=== PATIENT | male | born 1960 | race Caucasian/White ===

== ENCOUNTER 2018-10-13 14:50 | Day surgery (SDC) | payer OTHER ==
[2018-10-13] MEDS ORDERED: Xylocaine 1% Vial 30 ML PF IJ ONE (14:51)
[2018-10-13] MEDS ORDERED: Depo-Medrol 40 MG/ML IM ONE (14:51)
[2018-10-13] MEDS ORDERED: Marcaine 0.5% SDV 10 ML IJ ONE (14:51)
--- NOTE | 2018-10-13 16:44 | XRAY ---
Indication: Left hip injection. Intraoperative fluoroscopy was provided for 12 seconds. Single digital spot image submitted for interpretation demonstrates needle tip projecting just lateral to the left femur neck. Small amount of contrast injected for needle tip placement. Correlate with intraoperative findings/report.
--- NOTE | 2018-10-13 16:47 | XRAY ---
12 seconds of fluoroscopy was used in surgery for left intra-articular hip injection.
== END 2018-10-13 15:50 | disposition home or self-care (01) ==
LOC: SDC-PAIN 14:50
PROVIDERS: ATTEND Psychiatry & Neurology Pain Medicine
DX: M16.12 Unilateral primary osteoarthritis, left hip (principal); M25.552 Pain in left hip; I10 Essential (primary) hypertension; E78.00 Pure hypercholesterolemia, unspecified; K50.90 Crohn's disease, unspecified, without complications
CPT/HCPCS: 20610; 73501; 77002; J1030; J2001; Q9966

== ENCOUNTER 2019-03-03 10:31 | Emergency (ER) | payer OTHER ==
--- NOTE | 2019-03-03 10:43 | ERPHSYRPT ---
- History of Present Illness Time Seen by Provider: 03/03/19 10:43 Historian: patient Exam Limitations: no limitations Physician History: Pt says,. he has Chron's disease. C/O Constipation and lower abd pain for 2 days. Right Per anal pain. Timing/Duration: day(s) (2) Activities at Onset: none Quality: fullness Abdominal Pain Onset Location: suprapubic Pain Radiation: no radiation Severity of Pain-Max: moderate Severity of Pain-Current: moderate Modifying Factors: Improves With: other (Hurts when he tried to pass stool) Associated Symptoms: No back, No chest pain, No fatigue, No headache, No heartburn, No nausea, No neck pain, No rash, No shortness of breath, No syncope , No testicular pain Previous symptoms: same symptoms as today Allergies/Adverse Reactions: codeine Allergy (Verified 03/09/13 17:12) vancomycin Allergy (Verified 03/09/13 17:12) Home Medications: Metoprolol Succinate 100 mg [Toprol Xl 100 MG] 50 mg PO DAILY 03/09/13 [ History] Amitriptyline HCl 25 mg [Elavil 25 mg] 25 mg PO HS 09/22/17 [History] Fluticasone Propionate [Flonase Nasal] 16 gm NS DAILY PRN PRN 09/22/17 [History] Lisinopril 10 mg [Zestril 10 MG] 10 mg PO DAILY 09/22/17 [History] PARoxetine HCl [Paroxetine HCl] 20 mg PO DAILY 09/22/17 [History] Hx Tetanus, Diphtheria Vaccination/Date Given: Yes (UP TO DATE) Hx Influenza Vaccination/Date Given: No Hx Pneumococcal Vaccination/Date Given: No - Review of Systems Constitutional: No Fever, No Chills Eyes: No Symptoms Ears, Nose, & Throat: No Symptoms Respiratory: No Cough, No Dyspnea Cardiac: No Chest Pain, No Edema, No Syncope Abdominal/Gastrointestinal: Abdominal Pain, Constipation, Other (Per anal pain on right side), No Nausea, No Vomiting, No Diarrhea Genitourinary Symptoms: No Dysuria Musculoskeletal: No Back Pain, No Neck Pain Skin: No Rash Neurological: No Dizziness, No Focal Weakness, No Sensory Changes Psychological: No Symptoms Endocrine: No Symptoms All Other Systems: Reviewed and Negative - Past Medical History Pertinent Past Medical History: Yes Neurological History: No Pertinent History ENT History: No Pertinent History Cardiac History: Hypertension GI Medical History: Other (Crohn's) Psycho-Social History: Anxiety 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 - Past Surgical History Past Surgical History: Yes Gastrointestinal: Cholecystectomy - Social History Smoking Status: Current every day smoker Drug Use: none Patient Lives Alone: No - Nursing Vital Signs Nursing Vital Signs: Initial Vital Signs Temperature 98.0 F 03/03/19 10:37 Pulse Rate 96 H 03/03/19 10:37 Blood Pressure 130/90 03/03/19 10:37 O2 Sat by Pulse Oximetry 97 03/03/19 10:37 Pain Scale Pain Intensity 3 - Physical Exam General Appearance: no apparent distress, alert Eye Exam: PERRL/EOMI, eyes nml inspection Ears, Nose, Throat Exam: normal ENT inspection, pharynx normal, moist mucous membranes Neck Exam: normal inspection, non-tender, supple, full range of motion Respiratory Exam: normal breath sounds, lungs clear, No respiratory distress Cardiovascular Exam: regular rate/rhythm, normal heart sounds Gastrointestinal/Abdomen Exam: soft, normal bowel sounds, tenderness (Suprapubic ), No mass Rectal Exam: normal rectal tone, tenderness, No hemorrhoids, No black stool, No blood Back Exam: normal inspection, normal range of motion, No CVA tenderness, No vertebral tenderness Extremity Exam: normal inspection, normal range of motion, pelvis stable Neurologic Exam: alert, oriented x 3, cooperative, normal mood/affect, nml cerebellar function, sensation nml, No motor deficits Skin Exam: normal color, warm, dry - CT Exams Abdomen/Pelvis CT Interpretation: Discussed w/radiologist, Other (Fecal impaction) Ordered Tests: Active Orders 24 hr Category Date Time Status ABDOMEN AND PELVIS W CONTRAST [CT] Stat Exams 03/03/19 10:56 Completed CBC W DIFF Stat Lab 03/03/19 11:50 Completed CMP Stat Lab 03/03/19 11:50 Completed LIPASE Stat Lab 03/03/19 11:50 Completed Lactic Acid Stat Lab 03/03/19 11:56 Completed UA W/RFX UR CULTURE Stat Lab 03/03/19 12:25 Ordered Medication Summary Discontinued Medications Generic Name Dose Route Start Last Admin Trade Name Freq PRN Reason Stop Dose Admin Sodium Chloride 1,000 mls @ 999 mls/hr 03/03/19 10:56 03/03/19 11:23 Sodium Chloride 0.9% 1000 Ml IV 03/03/19 11:56 999 mls/hr .Q1H1M STA Administration Sodium Chloride Confirm 03/03/19 11:21 Sodium Chloride 0.9% 1000 Ml Administered 03/03/19 11:22 Dose 1,000 mls @ ud .ROUTE .K-MED ONE Lab/Rad Data: Laboratory Result Diagrams 03/03/19 11:50 03/03/19 11:50 Laboratory Results 03/03/19 03/03/19 03/03/19 Range/Units 11:56 11:50 11:50 WBC 8.0 (4.0-10.5) K/mm3 RBC 4.13 (4.1-5.6) M/mm3 Hgb 12.6 (12.5-18.0) gm/dl Hct 37.9 L (42-50) % MCV 91.8 (78-100) fl MCH 30.5 (26-32) pg MCHC 33.2 (32-36) g/dl RDW 13.9 (11.5-14.0) % Plt Count 183 (150-450) K/mm3 MPV 11.0 H (6-9.5) fl Gran % 59.5 (36.0-66.0) % Eos # (Auto) 0.31 (0-0.5) Absolute Lymphs (auto) 2.26 (1.0-4.6) Absolute Monos (auto) 0.65 (0.0-1.3) Lymphocytes % 28.1 (24.0-44.0) % Monocytes % 8.1 (0.0-12.0) % Eosinophils % 3.9 (0.00-5.0) % Basophils % 0.4 (0.0-0.4) % Absolute Granulocytes 4.79 (1.4-6.9) Basophils # 0.03 (0-0.4) Sodium 141 (137-145) mmol/L Potassium 3.7 (3.5-5.1) mmol/L Chloride 105 (98-107) mmol/L Carbon Dioxide 26 (22-30) mmol/L Anion Gap 13.6 (5-15) MEQ/L BUN 16 (9-20) mg/dL Creatinine 1.52 H (0.66-1.25) mg/dL Estimated GFR 50.7 ML/MIN Glucose 90 (74-106) mg/dL Lactic Acid 0.9 (0.4-2.0) Calcium 9.7 (8.4-10.2) mg/dL Total Bilirubin 0.30 (0.2-1.3) mg/dL AST 27 (17-59) U/L ALT 22 (0-50) U/L Alkaline Phosphatase 123 (38-126) U/L Serum Total Protein 7.3 (6.3-8.2) g/dL Albumin 4.1 (3.5-5.0) g/dL Lipase 163 (23-300) U/L - Progress Progress Note: 03/03/19 12:29 Manual Disimpaction and evacuation by RN Counseled pt/family regarding: diagnosis (Adv pt to take OTC laxatives ), need for follow-up - Departure Departure Disposition: Home, Extended Care Facility Clinical Impression: Fecal impaction, Constipation Condition: Stable Critical Care Time: No Referrals: CHARLIE AGUILAR [Primary Care Provider] - Instructions: Fecal Impaction, Constipation, Adult (DC) Prescriptions: Lactulose 10 gm PO HS PRN #300 ml PRN Reason: Constipation
[2019-03-03] MEDS ORDERED: Sodium Chloride 0.9% 1000 ML 1,000 ML IV STA (10:56)
[2019-03-03] MEDS ORDERED: Sodium Chloride 0.9% 1000 ML 1,000 ML ONE (11:21)
[2019-03-03 11:57] LABS: Absolute Neutrophil Ct (ANC) 4.79 (1.4-6.9); BASOPHIL % 0.4 % (0.0-0.4); Basophil (Absolute #) 0.03 (0-0.4); Eosinophil % 3.9 % (0.00-5.0); Eosinophil (Absolute #) 0.31 (0-0.5); Hematocrit 37.9 % (42-50); Hemoglobin 12.6 gm/dl (12.5-18.0); Lymphocyte (Absolute #) 2.26 (1.0-4.6); Lymphocytes % 28.1 % (24.0-44.0); Mean Cell Volume 91.8 fl (78-100); Mean Corpuscular Hemoglobin 30.5 pg (26-32); Mean Corpuscular Hgb Concent. 33.2 g/dl (32-36); Monocyte (Absolute #) 0.65 (0.0-1.3); Monocytes % 8.1 % (0.0-12.0); Neutrophil % 59.5 % (36.0-66.0); Platelet Count 183 K/mm3 (150-450); Red Blood Count 4.13 M/mm3 (4.1-5.6); Red Cell Distribution Width 13.9 % (11.5-14.0)
--- NOTE | 2019-03-03 12:06 | XRAY ---
Indication: Bilateral pain. Constipation 8 days. Multiple contiguous axial images obtained through the abdomen and pelvis using 80 cc Isovue 370 contrast only. Comparison: None Lung bases demonstrates bibasilar dependent atelectasis and small left lower lobe calcified granuloma. Heart is not enlarged. Noncontrasted stomach and bowel loops appear nonobstructed. Normal appendix. There is mild/moderate diffuse scattered colonic fecal debris throughout including mild rectal impaction. Previous cholecystectomy. No free fluid/air. Remaining liver, pancreas, spleen, adrenal glands, kidneys, ureters, and bladder appear unremarkable. Mild scattered aortoiliac calcifications. No AAA or pathologic retroperitoneal lymphadenopathy. Osseous structures intact with minimal/mild degenerative changes throughout the thoracolumbar spine. Small fatty right inguinal hernia. Impression: 1. Diffuse fecal stasis with mild rectal impaction. 2. Small fatty right inguinal hernia. 3. Remaining CT abdomen/pelvis with contrast exam is negative. CT DI 9.91
[2019-03-03 12:14] LABS: ALBUMIN 4.1 g/dL (3.5-5.0); ANION GAP 13.6 MEQ/L (5-15); BILIRUBIN,TOTAL 0.3 mg/dL (0.2-1.3); Calcium 9.7 mg/dL (8.4-10.2); Creatinine 1 1.52 mg/dL (0.66-1.25); Potassium 3.7 mmol/L (3.5-5.1); Total Protein 7.3 g/dL (6.3-8.2)
[2019-03-03 12:51] LABS: Appearance CLEAR (CLEAR); Bilirubin NEGATIVE (NEGATIVE); Blood NEGATIVE Ery/ul (0-5); Glucose NEGATIVE (NEGATIVE); Ketones NEGATIVE (NEGATIVE); Leukocyte Esterase NEGATIVE (NEGATIVE); Nitrite NEGATIVE (NEGATIVE); Protein,Urine Dip NEGATIVE (Negative); Specific Gravity 1.019 (1.005-1.025); Urobilinogen NEGATIVE mg/dL (0-1)
[2019-03-03 13:31] VITALS: BP 125/81; PULSE 87; O2SAT 97
== END 2019-03-03 13:33 | disposition home or self-care (01) ==
LOC: ED 10:31
DX: K56.41 Fecal impaction (principal); K59.00 Constipation, unspecified; R10.30 Lower abdominal pain, unspecified; Z79.899 Other long term (current) drug therapy; I10 Essential (primary) hypertension; K50.90 Crohn's disease, unspecified, without complications
CPT/HCPCS: 36415; 74177; 80053; 81001; 83605; 83690; 85025; 96360; 99284

== ENCOUNTER 2019-05-18 11:51 | Day surgery (SDC) | payer OTHER ==
[2019-05-18] MEDS ORDERED: Marcaine 0.5% SDV 10 ML IJ ONE (11:52)
[2019-05-18] MEDS ORDERED: Xylocaine 1% Vial 30 ML PF IJ ONE (11:52)
[2019-05-18] MEDS ORDERED: Depo-Medrol 40 MG/ML IM ONE (11:52)
--- NOTE | 2019-05-18 14:11 | XRAY ---
35 seconds fluoroscopy time in surgery for left intra-articular hip injection.
--- NOTE | 2019-05-18 14:13 | XRAY ---
Indication: Left hip injection. Intraoperative fluoroscopy was provided for 34 seconds. 2 digital spot images submitted for interpretation demonstrates needle tip just lateral to the left femur neck. Small amount of contrast injected for needle tip placement. Correlate with intraoperative findings/report.
== END 2019-05-18 13:36 | disposition home or self-care (01) ==
LOC: SDC-PAIN 11:51
PROVIDERS: ATTEND Psychiatry & Neurology Pain Medicine
DX: M16.12 Unilateral primary osteoarthritis, left hip (principal); M25.552 Pain in left hip; I10 Essential (primary) hypertension; E78.00 Pure hypercholesterolemia, unspecified; K50.90 Crohn's disease, unspecified, without complications; B19.10 Unspecified viral hepatitis B without hepatic coma; Z79.899 Other long term (current) drug therapy
CPT/HCPCS: 20610; 73501; 77002; J1030; J2001; Q9966

== ENCOUNTER 2019-06-11 21:25 | Emergency (ER) | payer OTHER ==
[2019-06-11 21:48] VITALS: BP 148/91; PULSE 109; O2SAT 100
--- NOTE | 2019-06-11 22:02 | ERPHSYRPT ---
- History of Present Illness Time Seen by Provider: 06/11/19 21:56 Source: patient Exam Limitations: no limitations Patient Subjective Stated Complaint: pt states that he had all his teeth removed on 06/08/19, pt states that he thought that his stitch is falling out, pt is afraid that gum was moving and falling, pt states he had dry socket before and was afraid that he had it again Triage Nursing Assessment: pt ambulated into the er, pt is axo x3, pt is hypertensive, tachycardic, pt has multiple incisions on upper and lower gums, recent removal of all teeth, pt has stitch present on front upper gum Physician History: pt actually has no pain and mouth is nontender , currently with good clots at extraction sites - one stitch is sticking out at central upper incisor but is not actually bothering pt - he just saw it and was concerned; discussed risk/ benefit of removal and he agrees best to let it fall out on its own since it may still be functioning to allow optimal healing and he is not symptomatic; he is advised to see his dentist this week in followup and to return meantime if any concerns; Associated Symptoms: denies symptoms Allergies/Adverse Reactions: codeine Allergy (Verified 06/11/19 21:48) Itching vancomycin Allergy (Verified 06/11/19 21:48) Itching Home Medications: Metoprolol Succinate 100 mg [Toprol Xl 100 MG] 50 mg PO DAILY 03/09/13 [ History] Amitriptyline HCl 25 mg [Elavil 25 mg] 25 mg PO HS 09/22/17 [History] Fluticasone Propionate [Flonase Nasal] 16 gm NS DAILY PRN PRN 09/22/17 [History] Lisinopril 10 mg [Zestril 10 MG] 10 mg PO DAILY 09/22/17 [History] PARoxetine HCl [Paroxetine HCl] 20 mg PO DAILY 09/22/17 [History] Hx Tetanus, Diphtheria Vaccination/Date Given: Yes (unknown) Hx Influenza Vaccination/Date Given: Yes Hx Pneumococcal Vaccination/Date Given: Yes - Review of Systems Constitutional: No Fever, No Chills Eyes: No Symptoms Ears, Nose, & Throat: No Symptoms Respiratory: No Cough, No Dyspnea Cardiac: No Chest Pain, No Edema, No Syncope Abdominal/Gastrointestinal: No Abdominal Pain, No Nausea, No Vomiting, No Diarrhea Genitourinary Symptoms: No Dysuria Musculoskeletal: No Back Pain, No Neck Pain Skin: No Rash Neurological: No Dizziness, No Focal Weakness, No Sensory Changes Psychological: No Symptoms Endocrine: No Symptoms Hematologic/Lymphatic: No Symptoms Immunological/Allergic: No Symptoms All Other Systems: Reviewed and Negative - Past Medical History Pertinent Past Medical History: Yes Neurological History: No Pertinent History ENT History: No Pertinent History Cardiac History: Hypertension GI Medical History: Crohns Disease, Pancreatitis, Other Psycho-Social History: Anxiety 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 - Past Surgical History Past Surgical History: Yes Gastrointestinal: Cholecystectomy Other Surgical History: all teeth removed - Social History Smoking Status: Current every day smoker How long have you smoked: 35 years Exposure to second hand smoke: No Drug Use: none Patient Lives Alone: No - Nursing Vital Signs Nursing Vital Signs: Initial Vital Signs Temperature 98.6 F 06/11/19 21:32 Pulse Rate 109 H 06/11/19 21:32 Respiratory Rate 15 06/11/19 21:32 Blood Pressure 148/91 06/11/19 21:32 O2 Sat by Pulse Oximetry 100 06/11/19 21:32 Pain Scale Pain Intensity 4 - Physical Exam General Appearance: no apparent distress, alert Eye Exam: bilateral eye: PERRL, EOMI Ear Exam: bilateral ear: auricle normal, canal normal Nasal Exam: normal inspection Throat Exam: pharynx normal, moist mucus membranes, No dental tenderness, No excessive drooling, No mandibular swelling, No maxillary swelling, No pharynx swelling, No pharynx tenderness, No tonsillar exudate, No trismus, No voice changes Neck Exam: supple Cardiovascular/Respiratory Exam: normal breath sounds, regular rate/rhythm Abdominal Exam: non-tender, soft Neurologic Exam: alert, oriented x 3, sensation nml, No motor deficits Skin Exam: normal color, warm, dry SpO2 Interpretation: normal SpO2: 100 - Course Nursing assessment & vital signs reviewed: Yes Ordered Tests: Active Orders 24 hr Category Date Time Status Suture Removal STAT Care 06/11/19 21:37 Active - Progress Progress: improved, re-examined Counseled pt/family regarding: diagnosis, need for follow-up - Departure Departure Disposition: Home Clinical Impression: SP dental extraction with stitch Condition: Good Critical Care Time: No Referrals: JOCELYNE BURRIS MD [Primary Care Provider] - Instructions: Tooth Extraction (DC), Dry Socket Additional Instructions: we do not think you have dry socket and you have not complained of this , but are providing instructions to help you avoid dry socket; let the stitch gradually dissolve on its own - return or see your dentist meantime if it bothers you or any other symptoms of concern and see your dentist next week as a recheck ;
== END 2019-06-11 22:11 | disposition home or self-care (01) ==
LOC: ED 21:25
DX: Z98.818 Other dental procedure status (principal)
CPT/HCPCS: 99283

== ENCOUNTER 2019-06-29 11:19 | Day surgery (SDC) | payer OTHER ==
[2019-06-29] MEDS ORDERED: Xylocaine 1% Vial 30 ML PF IJ ONE (11:20)
[2019-06-29] MEDS ORDERED: Depo-Medrol 40 MG/ML IM ONE (11:20)
[2019-06-29] MEDS ORDERED: Marcaine 0.5% SDV 10 ML IJ ONE (11:20)
--- NOTE | 2019-06-29 14:14 | XRAY ---
Indication: Left SI joint injection. Intraoperative fluoroscopy was provided for 11 seconds. 2 digital spot images submitted for interpretation demonstrates posterior needle tip projecting over the inferior left SI joint. Correlate with intraoperative findings/report.
--- NOTE | 2019-06-29 14:16 | XRAY ---
11 seconds fluoroscopy time in surgery for left SI joint injection.
== END 2019-06-29 13:47 | disposition home or self-care (01) ==
LOC: SDC-PAIN 11:19
PROVIDERS: ATTEND Psychiatry & Neurology Pain Medicine
DX: M46.1 Sacroiliitis, not elsewhere classified (principal); M53.3 Sacrococcygeal disorders, not elsewhere classified; I10 Essential (primary) hypertension; E78.00 Pure hypercholesterolemia, unspecified; F41.8 Other specified anxiety disorders; K50.90 Crohn's disease, unspecified, without complications; B19.10 Unspecified viral hepatitis B without hepatic coma; K86.9 Disease of pancreas, unspecified; Z79.899 Other long term (current) drug therapy
CPT/HCPCS: 72020; 77002; G0260; 27096; J1030; J2001

== ENCOUNTER 2019-07-26 04:02 | Emergency (ER) | payer OTHER ==
[2019-07-26] MEDS ORDERED: Zofran 4 MG/2 ML VIAL IV ONE (04:58)
[2019-07-26] MEDS ORDERED: Sodium Chloride 0.9% 1000 ML 1,000 ML IV STA (04:58)
[2019-07-26] MEDS ORDERED: Narcan 0.4 MG/ML IV ONE (05:15)
[2019-07-26 05:16] LABS: Absolute Neutrophil Ct (ANC) 7.23 (1.4-6.9); BASOPHIL % 0.3 % (0.0-0.4); Basophil (Absolute #) 0.03 (0-0.4); Eosinophil % 3.7 % (0.00-5.0); Hematocrit 40.4 % (42-50); Hemoglobin 13.4 gm/dl (12.5-18.0); Lymphocyte (Absolute #) 2.49 (1.0-4.6); Mean Cell Volume 91.6 fl (78-100); Mean Corpuscular Hemoglobin 30.4 pg (26-32); Mean Corpuscular Hgb Concent. 33.2 g/dl (32-36); Mean Platelet Volume 11.4 fl (7.5-11.0); Monocyte (Absolute #) 0.66 (0.0-1.3); Monocytes % 6.1 % (0.0-12.0); Neutrophil % 66.9 % (36.0-66.0); Platelet Count 201 K/mm3 (150-450); Red Blood Count 4.41 M/mm3 (4.1-5.6); Red Cell Distribution Width 14.4 % (11.5-14.0); White Blood Count 10.8 K/mm3 (4.0-10.5)
[2019-07-26] MEDS ORDERED: Narcan 0.4 MG/ML ONE (05:16)
[2019-07-26 05:17] LABS: ALBUMIN 4.5 g/dL (3.5-5.0); ALKALINE PHOSPHATASE 175 U/L (38-126); ANION GAP 16.2 MEQ/L (5-15); BLOOD UREA NITROGEN 18 mg/dL (9-20); CHLORIDE 111 mmol/L (98-107); Calcium 9.8 mg/dL (8.4-10.2); Carbon Dioxide 21 mmol/L (22-30); Glucose 124 mg/dL (74-106); MAGNESIUM 1.4 mg/dL (1.6-2.3); Potassium 3.4 mmol/L (3.5-5.1); SGOT/AST 20 U/L (17-59); SGPT/ALT 24 U/L (0-50); SODIUM 145 mmol/L (137-145)
[2019-07-26 05:18] LABS: ACETAMINOPHEN < 10 ug/ml (10-30); ETHYL ALCOHOL < 10 mg/dL (0-10); SALICYLATE < 1.0 mg/dL (2-20)
[2019-07-26 05:18] LABS: A-aADO2 59; ABG HEMOGLOBIN 13.6; ABG POTASSIUM 3.7 (3.5-5.1); ARTERIAL BLD GAS O2 SATURATION 94.5 % (95-100); ARTERIAL BLOOD GAS BASE EXCESS -4.5 (-2.0-2.0); ARTERIAL BLOOD GAS FIO2 28 %; ARTERIAL BLOOD GAS PCO2 55 mmHg (35-45); ARTERIAL BLOOD GAS PO2 72 mmHg (75-100); CARBOXYHEMOGLOBIN 1.5 % THgb (0.0-6.9); HCO3- 23.6 (22-28); HGB O2 SAT 92.4 g/dF (94-100); Methhemoglobin 0.7 % (1.4-1.5); paO2 pAO1 0.55
[2019-07-26] MEDS ORDERED: Zofran 4 MG/2 ML VIAL ONE (05:18)
[2019-07-26] MEDS ORDERED: Sodium Chloride 0.9% 1000 ML 1,000 ML ONE ×2 (05:18→07:00)
[2019-07-26 05:19] LABS: ABG SITE LEFT BRACHIAL; ALLEN TEST OK? YES; ARTERIAL BLOOD GAS pH 7.24 (7.35-7.45)
[2019-07-26 05:20] LABS: ARTERIAL BLOOD GAS VENT MODE NC
[2019-07-26 05:21] LABS: Appearance CLEAR (CLEAR); Bilirubin NEGATIVE (NEGATIVE); Blood NEGATIVE Ery/ul (0-5); Glucose NEGATIVE (NEGATIVE); Hyaline Casts 26-50 /LPF (0-2); Ketones NEGATIVE (NEGATIVE); Leukocyte Esterase NEGATIVE (NEGATIVE); Mucus SLIGHT /HPF (NEGATIVE); Nitrite NEGATIVE (NEGATIVE); Protein,Urine Dip NEGATIVE (Negative); RBC 0-2 /HPF (0-2); Specific Gravity 1.013 (1.005-1.025); Urobilinogen NEGATIVE mg/dL (0-1)
[2019-07-26 05:22] LABS: Amphetamine,Urine NEGATIVE (NEGATIVE); Barbiturate,Urine NEGATIVE (NEGATIVE); Benzodiazepine,Urine NEGATIVE (NEGATIVE); Cocaine,Urine NEGATIVE (NEGATIVE); Methadone,Urine NEGATIVE (NEGATIVE); Opiate,Urine POSITIVE (NEGATIVE); PCP,Urine NEGATIVE (NEGATIVE); THC,Urine NEGATIVE (NEGATIVE)
--- NOTE | 2019-07-26 05:33 | ERPHSYRPT ---
- History of Present Illness Time Seen by Provider: 07/26/19 04:27 Source: EMS Exam Limitations: intoxication Patient Subjective Stated Complaint: family informed EMS pt "not acting himself " AMS Triage Nursing Assessment: pt to ED by EMS with AMS. pt family reports to EMS pt "not acting himself." pt was wondering around house on EMS arrival and was alert to self, place, and date. on arrival to ED pt moved self from cot to bed and was only alert to self. pt is confused, extremely sleepy, awakened by pain or loud voice. unable to follow commands at this time. no noted facial droop. pupils 3 mm brisk. lung sounds clear and equal bilat, heart sounds clear, bowel sounds clear. pt family reports to EMS that family members were drinking tonight but pt was not. Pt told EMS that pt may or may not have taken [place] 7.5. unable to assess anything further at this time. unable to assess pain at this time. Physician History: 58 years old male with history of hypertension, hyperlipidemia, chronic pain on opiates who was brought in the ER with altered mental status noticed by family. As per report patient was not acting himself and on EMS arrival patient was wandering around the house, sleepy on presentation in the ER and on my evaluation patient is difficult to wake up even with sternal rub. Patient has his bottle of 120 New[place] was filled 2 days ago but currently having only 5 pills left. History is limited. Timing/Duration: today Baseline/Normal Cognition: alert oriented x 3 Current Cognition: poor alertness Allergies/Adverse Reactions: codeine Allergy (Verified 07/26/19 05:01) Itching vancomycin Allergy (Verified 07/26/19 05:01) Itching Home Medications: ARIPiprazole [Aripiprazole] 15 mg PO DAILY 06/11/19 [History] Amitriptyline HCl 200 mg PO HS 06/11/19 [History] Amlodipine Besylate 2.5 mg PO DAILY 06/11/19 [History] Baclofen 20 mg PO DAILY 06/11/19 [History] Desvenlafaxine Succinate [Desvenlafaxine Succinate ER] 50 mg PO DAILY 06/11/19 [ History] Diclofenac Sodium Gel [Voltaren GEL] 1 applic TOP QID PRN 06/11/19 [ History] Hydrocodone Bit/Acetaminophen [Hydrocodon-Acetaminoph 7.5-325] 1 tablet PO QID 06/11/19 [History] Loratadine [Claritin] 10 mg PO DAILY 06/11/19 [History] Mesalamine [Apriso] 0.375 gm PO DAILY 06/11/19 [History] Ondansetron HCl [Zofran] 4 mg PO QID PRN 06/11/19 [History] Rizatriptan Benzoate [Rizatriptan] 10 mg PO DAILY PRN 06/11/19 [History] Topiramate [Trokendi Xr] 200 mg PO HS 06/11/19 [History] Triamcinolone Acetonide 0.1% [Kenalog 0.1% Ointment] 1 applic TOP DAILY [History] Hx Tetanus, Diphtheria Vaccination/Date Given: Yes (unable to assess at this time) Hx Influenza Vaccination/Date Given: Yes Hx Pneumococcal Vaccination/Date Given: Yes Travel Risk - International Travel Have you traveled outside of the country in past 3 weeks: No Have you or anyone close to you been diagnosed with or: No Do your reside in a community with a known COVID-19 case?: Yes If Yes where:: [facility] - Coronavirus Screening Has patient experienced Coronavirus symptoms: No - Review of Systems All Other Systems: Unable due to condition - Past Medical History Pertinent Past Medical History: Yes Neurological History: No Pertinent History ENT History: No Pertinent History Cardiac History: Hypertension Respiratory History: No Pertinent History Endocrine Medical History: No Pertinent History Musculoskeletal History: No Pertinent History GI Medical History: Crohns Disease, Pancreatitis, Other History: No Pertinent History Psycho-Social History: Anxiety Male Reproductive Disorders: No Pertinent History 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 unable to update at this time -07/26/19414 - Past Surgical History Past Surgical History: Yes Neuro Surgical History: No Pertinent History Cardiac: No Pertinent History Respiratory: No Pertinent History Gastrointestinal: Cholecystectomy Other Surgical History: all teeth removed -unable to update at this time 414 - Social History Smoking Status: Current every day smoker How long have you smoked: 35 years Exposure to second hand smoke: No Drug Use: none Patient Lives Alone: No - Nursing Vital Signs Nursing Vital Signs: Initial Vital Signs Temperature 98.6 F 07/26/19 04:07 Pulse Rate 108 H 07/26/19 04:07 Respiratory Rate 12 07/26/19 04:07 Blood Pressure 112/95 07/26/19 04:07 O2 Sat by Pulse Oximetry 96 07/26/19 04:07 Pain Scale Pain Intensity 0 - [place] Coma Scale Best Eye Response (Gabbi): (2) open to pain Best Verbal Response ([place]): (3) inappropriate words Best Motor Response ([place]): (4) withdraws to pain [place] Total: 9 - Physical Exam General Appearance: mild distress Eye Exam: bilateral eye: normal inspection, PERRL Ears, Nose, Throat Exam: normal ENT inspection, TMs normal, pharynx normal Neck Exam: normal inspection Respiratory: normal breath sounds, lungs clear Cardiovascular: regular rate/rhythm, normal heart sounds Gastrointestinal: soft, normal bowel sounds, No tenderness Back Exam: normal inspection Extremity Exam: normal inspection, pelvis stable 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, No normal speech Skin Exam: normal color SpO2 Interpretation: normal SpO2: 94 O2 Delivery: Nasal Cannula Procedures - Intubation Intubation Indications: airway protection, respiratory distress Intubation Method: glidescope Tube Size (cm): 8.0 Medications: Etomidate, Succinylcholine Endotracheal Tube Confirmation: bilateral breath sounds, good rise & fall of chest, stable or inc of O2 sat Intubation Complications: no complications Performed By: ED Physician Post Intubation Xray: Yes Progress/X-ray Impression: 07/26/19 05:[address] - Course Nursing assessment & vital signs reviewed: Yes EKG Interpreted by Me: RATE (112), NORMAL AXIS, NORMAL INTERVALS, NORMAL QRS Ordered Tests: Active Orders 24 hr Category Date Time Status Accucheck STAT Care 07/26/19 04:58 Active EKG-ER Only STAT Care 07/26/19 04:58 Active IV Insertion STAT Care 07/26/19 04:58 Active CHEST 1 VIEW (PORTABLE) Stat Exams 07/26/19 04:59 Ordered HEAD WITHOUT CONTRAST [CT] Stat Exams 07/26/19 05:01 Ordered ABG [ARTERIAL BLOOD GASES] Stat Lab 07/26/19 06:34 Ordered ACETAMINOPHEN Stat Lab 07/26/19 04:30 Completed ARTERIAL BLOOD GASES Stat Lab 07/26/19 05:00 Completed BLOOD CULTURE Stat Lab 07/26/19 05:30 Received CBC W DIFF Stat Lab 07/26/19 04:30 Completed CMP Stat Lab 07/26/19 04:30 Completed ETHYL ALCOHOL Stat Lab 07/26/19 04:30 Completed Lactic Acid Stat Lab 07/26/19 04:58 Ordered MAGNESIUM Stat Lab 07/26/19 04:30 Completed SALICYLATE Stat Lab 07/26/19 04:30 Completed TROPONIN Q3H Lab 07/26/19 04:30 Completed TROPONIN Q3H Lab 07/26/19 08:00 Ordered TROPONIN Q3H Lab 07/26/19 11:00 Ordered TROPONIN Q3H Lab 07/26/19 14:00 Ordered TROPONIN Q3H Lab 07/26/19 17:00 Ordered UA W/RFX UR CULTURE Stat Lab 07/26/19 04:30 Completed Urine Triage Profile Stat Lab 07/26/19 04:30 Completed Medication Summary Generic Name Dose Route Start Last Admin Trade Name Freq PRN Reason Stop Dose Admin Propofol 100 mls @ 0 mls/hr 07/26/19 06:08 Propofol 1000 Mg/100 Ml Bottle IV 08/25/19 06:07 .Q0M PRN AGITATION Protocol 5 MCG/KG/MIN Discontinued Medications Generic Name Dose Route Start Last Admin Trade Name Freq PRN Reason Stop Dose Admin Sodium Chloride 1,000 mls @ 999 mls/hr 07/26/19 04:58 07/26/19 05:20 Sodium Chloride 0.9% 1000 Ml IV 07/26/19 05:58 999 mls/hr .Q1H1M STA Administration Sodium Chloride Confirm 07/26/19 05:18 Sodium Chloride 0.9% 1000 Ml Administered 07/26/19 05:19 Dose 1,000 mls @ ud .ROUTE .STK-MED ONE Midazolam HCl 2 mg 07/26/19 06:11 Versed 2 Mg/2 Ml Injection IV 07/26/19 06:12 1XONLY ONE Midazolam HCl Confirm 07/26/19 06:12 Versed 5 Mg/5 Ml Administered 07/26/19 06:13 Dose 5 mg .ROUTE .STK-MED ONE Naloxone HCl 0.4 mg 07/26/19 05:15 07/26/19 05:18 Narcan 0.4 Mg/Ml IV 07/26/19 05:16 0.4 mg STAT ONE Administration Naloxone HCl Confirm 07/26/19 05:16 Narcan 0.4 Mg/Ml Administered 07/26/19 05:17 Dose 0.4 mg .ROUTE .STK-MED ONE Ondansetron HCl 4 mg 07/26/19 04:58 07/26/19 05:30 Zofran 4 Mg/2 Ml Vial IV 07/26/19 04:59 4 mg STAT ONE Administration Ondansetron HCl Confirm 07/26/19 05:18 Zofran 4 Mg/2 Ml Vial Administered 07/26/19 05:19 Dose 4 mg .ROUTE .STK-MED ONE Lab/Rad Data: Laboratory Result Diagrams 07/26/19 04:30 07/26/19 04:30 Laboratory Results 07/26/19 07/26/19 07/26/19 Range/Units 05:00 04:30 04:30 WBC (4.0-10.5) K/mm3 RBC (4.1-5.6) M/mm3 Hgb (12.5-18.0) gm/dl Hct (42-50) % MCV (78-100) fl MCH (26-32) pg MCHC (32-36) g/dl RDW (11.5-14.0) % Plt Count (150-450) K/mm3 MPV (7.5-11.0) fl Gran % (36.0-66.0) % Eos # (Auto) (0-0.5) Absolute Lymphs (auto) (1.0-4.6) Absolute Monos (auto) (0.0-1.3) Lymphocytes % (24.0-44.0) % Monocytes % (0.0-12.0) % Eosinophils % (0.00-5.0) % Basophils % (0.0-0.4) % Absolute Granulocytes (1.4-6.9) Basophils # (0-0.4) Puncture Site LEFT BRACHIAL pCO2 55 H (35-45) mmHg pO2 72 L (75-100) mmHg Base Excess -4.5 L (-2.0-2.0) O2 Saturation 92.4 L (94-100) g/dF ABG pH 7.24 L* (7.35-7.45) ABG HCO3 23.6 (22-28) ABG O2 Sat (Measured) 94.5 L (95-100) % Andrei Test YES A-a Gradient 59 a/A Ratio 0.55 Hemoglobin 13.6 Carboxyhemoglobin 1.5 (0.0-6.9) % THgb Methemoglobin 0.7 L (1.4-1.5) % Temperature 37.0 C POC O2 Flow Rate 28 % Vent Mode NC Sodium (137-145) mmol/L Potassium 3.7 (3.5-5.1) mmol/L Chloride (98-107) mmol/L Carbon Dioxide (22-30) mmol/L Anion Gap (5-15) MEQ/L BUN (9-20) mg/dL Creatinine (0.66-1.25) mg/dL Estimated GFR ML/MIN Glucose (74-106) mg/dL Calcium (8.4-10.2) mg/dL Magnesium (1.6-2.3) mg/dL Total Bilirubin (0.2-1.3) mg/dL AST (17-59) U/L ALT (0-50) U/L Alkaline Phosphatase (38-126) U/L Troponin I < 0.012 (0.000-0.034) ng/mL Serum Total Protein (6.3-8.2) g/dL Albumin (3.5-5.0) g/dL Urine Color (YELLOW) Urine Appearance (CLEAR) Urine pH (5-6) Ur Specific [place] (1.005-1.025) Urine Protein (Negative) Urine Ketones (NEGATIVE) Urine Blood (0-5) Jerry/ul Urine Nitrite (NEGATIVE) Urine Bilirubin (NEGATIVE) Urine Urobilinogen (0-1) mg/dL Ur Leukocyte Esterase (NEGATIVE) Urine WBC (Auto) (0-5) /HPF Urine RBC (Auto) (0-2) /HPF U Hyaline Cast (Auto) (0-2) /LPF Other Casts (Auto) (NEGATIVE) /LPF Urine Mucus (Auto) (NEGATIVE) /HPF Urine Culture Reflexed (NO) Urine Glucose (NEGATIVE) mg/dL Salicylates < 1.0 L (2-20) mg/dL Urine Opiates Level (NEGATIVE) Ur Methadone (NEGATIVE) Acetaminophen < 10 L (10-30) ug/ml Urine Barbiturates (NEGATIVE) Ur Phencyclidine (PCP) (NEGATIVE) Urine Amphetamine (NEGATIVE) U Benzodiazepine Level (NEGATIVE) Urine Cocaine (NEGATIVE) Urine Marijuana (THC) (NEGATIVE) Ethyl Alcohol (0-10) mg/dL 07/26/19 07/26/19 07/26/19 Range/Units 04:30 04:30 04:30 WBC 10.8 H (4.0-10.5) K/mm3 RBC 4.41 (4.1-5.6) M/mm3 Hgb 13.4 (12.5-18.0) gm/dl Hct 40.4 L (42-50) % MCV 91.6 (78-100) fl MCH 30.4 (26-32) pg MCHC 33.2 (32-36) g/dl RDW 14.4 H (11.5-14.0) % Plt Count 201 (150-450) K/mm3 MPV 11.4 H (7.5-11.0) fl Gran % 66.9 H (36.0-66.0) % Eos # (Auto) 0.40 (0-0.5) Absolute Lymphs (auto) 2.49 (1.0-4.6) Absolute Monos (auto) 0.66 (0.0-1.3) Lymphocytes % 23.0 L (24.0-44.0) % Monocytes % 6.1 (0.0-12.0) % Eosinophils % 3.7 (0.00-5.0) % Basophils % 0.3 (0.0-0.4) % Absolute Granulocytes 7.23 H (1.4-6.9) Basophils # 0.03 (0-0.4) Puncture Site pCO2 (35-45) mmHg pO2 (75-100) mmHg Base Excess (-2.0-2.0) O2 Saturation (94-100) g/dF ABG pH (7.35-7.45) ABG HCO3 (22-28) ABG O2 Sat (Measured) (95-100) % Andrei Test A-a Gradient a/A Ratio Hemoglobin Carboxyhemoglobin (0.0-6.9) % THgb Methemoglobin (1.4-1.5) % Temperature C POC O2 Flow Rate % Vent Mode Sodium 145 (137-145) mmol/L Potassium 3.4 L (3.5-5.1) mmol/L Chloride 111 H (98-107) mmol/L Carbon Dioxide 21 L (22-30) mmol/L Anion Gap 16.2 H (5-15) MEQ/L BUN 18 (9-20) mg/dL Creatinine 1.80 H (0.66-1.25) mg/dL Estimated GFR 41.7 ML/MIN Glucose 124 H (74-106) mg/dL Calcium 9.8 (8.4-10.2) mg/dL Magnesium 1.4 L (1.6-2.3) mg/dL Total Bilirubin 0.50 (0.2-1.3) mg/dL AST 20 (17-59) U/L ALT 24 (0-50) U/L Alkaline Phosphatase 175 H (38-126) U/L Troponin I (0.000-0.034) ng/mL Serum Total Protein 8.0 (6.3-8.2) g/dL Albumin 4.5 (3.5-5.0) g/dL Urine Color YELLOW (YELLOW) Urine Appearance CLEAR (CLEAR) Urine pH 6.0 (5-6) Ur Specific [place] 1.013 (1.005-1.025) Urine Protein NEGATIVE (Negative) Urine Ketones NEGATIVE (NEGATIVE) Urine Blood NEGATIVE (0-5) Jerry/ul Urine Nitrite NEGATIVE (NEGATIVE) Urine Bilirubin NEGATIVE (NEGATIVE) Urine Urobilinogen NEGATIVE (0-1) mg/dL Ur Leukocyte Esterase NEGATIVE (NEGATIVE) Urine WBC (Auto) 3-5 (0-5) /HPF Urine RBC (Auto) 0-2 (0-2) /HPF U Hyaline Cast (Auto) 26-50 (0-2) /LPF Other Casts (Auto) NEGATIVE (NEGATIVE) /LPF Urine Mucus (Auto) SLIGHT (NEGATIVE) /HPF Urine Culture Reflexed NO (NO) Urine Glucose NEGATIVE (NEGATIVE) mg/dL Salicylates (2-20) mg/dL Urine Opiates Level (NEGATIVE) Ur Methadone (NEGATIVE) Acetaminophen (10-30) ug/ml Urine Barbiturates (NEGATIVE) Ur Phencyclidine (PCP) (NEGATIVE) Urine Amphetamine (NEGATIVE) U Benzodiazepine Level (NEGATIVE) Urine Cocaine (NEGATIVE) Urine Marijuana (THC) (NEGATIVE) Ethyl Alcohol < 10 (0-10) mg/dL 07/26/19 Range/Units 04:30 WBC (4.0-10.5) K/mm3 RBC (4.1-5.6) M/mm3 Hgb (12.5-18.0) gm/dl Hct (42-50) % MCV (78-100) fl MCH (26-32) pg MCHC (32-36) g/dl RDW (11.5-14.0) % Plt Count (150-450) K/mm3 MPV (7.5-11.0) fl Gran % (36.0-66.0) % Eos # (Auto) (0-0.5) Absolute Lymphs (auto) (1.0-4.6) Absolute Monos (auto) (0.0-1.3) Lymphocytes % (24.0-44.0) % Monocytes % (0.0-12.0) % Eosinophils % (0.00-5.0) % Basophils % (0.0-0.4) % Absolute Granulocytes (1.4-6.9) Basophils # (0-0.4) Puncture Site pCO2 (35-45) mmHg pO2 (75-100) mmHg Base Excess (-2.0-2.0) O2 Saturation (94-100) g/dF ABG pH (7.35-7.45) ABG HCO3 (22-28) ABG O2 Sat (Measured) (95-100) % Andrei Test A-a Gradient a/A Ratio Hemoglobin Carboxyhemoglobin (0.0-6.9) % THgb Methemoglobin (1.4-1.5) % Temperature C POC O2 Flow Rate % Vent Mode Sodium (137-145) mmol/L Potassium (3.5-5.1) mmol/L Chloride (98-107) mmol/L Carbon Dioxide (22-30) mmol/L Anion Gap (5-15) MEQ/L BUN (9-20) mg/dL Creatinine (0.66-1.25) mg/dL Estimated GFR ML/MIN Glucose (74-106) mg/dL Calcium (8.4-10.2) mg/dL Magnesium (1.6-2.3) mg/dL Total Bilirubin (0.2-1.3) mg/dL AST (17-59) U/L ALT (0-50) U/L Alkaline Phosphatase (38-126) U/L Troponin I (0.000-0.034) ng/mL Serum Total Protein (6.3-8.2) g/dL Albumin (3.5-5.0) g/dL Urine Color (YELLOW) Urine Appearance (CLEAR) Urine pH (5-6) Ur Specific [place] (1.005-1.025) Urine Protein (Negative) Urine Ketones (NEGATIVE) Urine Blood (0-5) Jerry/ul Urine Nitrite (NEGATIVE) Urine Bilirubin (NEGATIVE) Urine Urobilinogen (0-1) mg/dL Ur Leukocyte Esterase (NEGATIVE) Urine WBC (Auto) (0-5) /HPF Urine RBC (Auto) (0-2) /HPF U Hyaline Cast (Auto) (0-2) /LPF Other Casts (Auto) (NEGATIVE) /LPF Urine Mucus (Auto) (NEGATIVE) /HPF Urine Culture Reflexed (NO) Urine Glucose (NEGATIVE) mg/dL Salicylates (2-20) mg/dL Urine Opiates Level POSITIVE (NEGATIVE) Ur Methadone NEGATIVE (NEGATIVE) Acetaminophen (10-30) ug/ml Urine Barbiturates NEGATIVE (NEGATIVE) Ur Phencyclidine (PCP) NEGATIVE (NEGATIVE) Urine Amphetamine NEGATIVE (NEGATIVE) U Benzodiazepine Level NEGATIVE (NEGATIVE) Urine Cocaine NEGATIVE (NEGATIVE) Urine Marijuana (THC) NEGATIVE (NEGATIVE) Ethyl Alcohol (0-10) mg/dL - Progress Progress: re-examined Progress Note: 07/26/19 06:43 58 years old is evaluated for altered mental status. Patient was minimally responsive on presentation. Later on it was getting difficult to arouse. I have given him Narcan with no response. Patient is RSI. I have obtained CT head which is negative for any acute findings. Chest x-ray did not show any acute cardiopulmonary findings. Negative troponins. EKG negative for any acute ST changes. No acute electrolyte abnormalities. Urine drug screen positive for opiates. Poison control is called, recommended Narcan which patient is given with no response and otherwise supportive care. Discussed with Dr. Connors at [facility] ER and patient is accepted for transfer. Discussed with Dr.: Other - Departure Departure Disposition: Transfer Clinical Impression: AMS (altered mental status) Qualifiers: Altered mental status type: unspecified Qualified Code(s): R41.82 - Altered mental status, unspecified Respiratory failure Qualifiers: Chronicity: acute Respiratory failure complication: hypoxia and hypercapnia Qualified Code(s): J96.01 - Acute respiratory failure with hypoxia Condition: Fair Critical Care Time: Yes Critical Care Time(excluding separately billable procedures): Critical 75-104 mins Referrals: JOCELYNE BURRIS MD [Primary Care Provider] -
[2019-07-26] MEDS ORDERED: Amidate 20 MG/10 ML IV ONE (05:46)
[2019-07-26] MEDS ORDERED: Quelicin Fliptop 200 MG/10 ML IV ONE (05:47)
[2019-07-26] MEDS ORDERED: Propofol 1000 mg/100 ml Bottle 100 ML IV PRN (06:08)
[2019-07-26] MEDS ORDERED: Versed 2 MG/2 ML Injection IV ONE (06:11)
[2019-07-26] MEDS ORDERED: VERSED 5 MG/5 ML ONE (06:12)
[2019-07-26] MEDS ORDERED: Zemuron 100 MG/10 ML IV ONE (06:30)
[2019-07-26] MEDS ORDERED: DIPRIVAN 200 MG/20 ML IV ONE ×2 (06:30→06:32)
[2019-07-26] MEDS ORDERED: Sodium Chloride 0.9% 1000 ML 1,000 ML IV SCH (07:00)
[2019-07-26 07:04] LABS: A-aADO2 173; ABG HEMOGLOBIN 12.6; ABG POTASSIUM 3.8 (3.5-5.1); ABG SITE RIGHT RADIAL; ALLEN TEST OK? YES; ARTERIAL BLOOD GAS BASE EXCESS -6.5 (-2.0-2.0); ARTERIAL BLOOD GAS FIO2 60 %; ARTERIAL BLOOD GAS PCO2 46 mmHg (35-45); ARTERIAL BLOOD GAS PO2 197 mmHg (75-100); ARTERIAL BLOOD GAS VENT MODE A/C; ARTERIAL BLOOD GAS pH 7.26 (7.35-7.45); CARBOXYHEMOGLOBIN 1.2 % THgb (0.0-6.9); HCO3- 20.6 (22-28); HGB O2 SAT 97.7 g/dF (94-100); Methhemoglobin 1.1 % (1.4-1.5); paO2 pAO1 0.53
[2019-07-26 07:11] VITALS: BP 106/78; PULSE 102; O2SAT 100
--- NOTE | 2019-07-26 08:53 | XRAY ---
Indication: Overdose. Intubation. Comparison: None Portable chest demonstrates endotracheal tube tip 3 cm above the nikia, NG tube tip in the stomach, and multiple overlying monitoring leads/tubing. Lungs are slightly underinflated and clear. Heart is not enlarged for AP portable technique. Bony thorax intact. Impression: Nonacute chest with support tubing in situ. Comment: Preliminary interpretation was made by [facility]. No critical discrepancy.
--- NOTE | 2019-07-26 08:57 | XRAY ---
Indication: Unresponsive. Overdose. Multiple contiguous axial images obtained through the head without contrast. Comparison: None Age-appropriate global atrophy and mild periventricular degenerative micro-ischemia. Remote lacunar infarct in the posterior right external capsule. No acute intracranial hemorrhage, abnormal extra-axial fluid collection, or mass effect. Fourth ventricle is midline without hydrocephalus. Bony calvarium intact. Fluid in the nasopharynx possibly posttraumatic. Minimal mucosal thickening of both ethmoid sinuses. Remaining visualized paranasal sinuses and mastoid air cells are clear. Impression: 1. Atrophy and degenerative micro-ischemia within normal limits for patient's age. Right external capsule remote lacunar infarct. 2. No acute intracranial abnormalities. 3. Fluid in the nasopharynx possibly posttraumatic. 4. Minimal paranasal sinus disease. Comment: Preliminary interpretation was made by [facility]. No critical discrepancy.
== END 2019-07-26 07:28 | disposition short-term general hospital (02) ==
LOC: ED 04:02
DX: R41.82 Altered mental status, unspecified (principal); J96.01 Acute respiratory failure with hypoxia; Z79.891 Long term (current) use of opiate analgesic; E78.00 Pure hypercholesterolemia, unspecified; I10 Essential (primary) hypertension; K50.90 Crohn's disease, unspecified, without complications; Z72.0 Tobacco use
CPT/HCPCS: 31500; 70450; 80053; 80307; 81001; 82375; 82803; 82962; 83605; 83735; 84484; 85025; 87040; 93005; 94799; 96374; 96375; 99291; 99292; G0480; G0481; P9612; 36000; 36415; 36600; 71045; 99285; J0330; J2250; J2310; J2405; J2704

== ENCOUNTER 2019-08-22 17:24 | Emergency (ER) | payer OTHER ==
[2019-08-22] MEDS ORDERED: Sodium Chloride 0.9% 1000 ML 1,000 ML IV STA (17:39)
[2019-08-22 18:00] LABS: Absolute Neutrophil Ct (ANC) 4.52 (1.4-6.9); BASOPHIL % 0.5 % (0.0-0.4); Basophil (Absolute #) 0.04 (0-0.4); Eosinophil % 5.8 % (0.00-5.0); Eosinophil (Absolute #) 0.51 (0-0.5); Hematocrit 40.8 % (42-50); Hemoglobin 13.1 gm/dl (12.5-18.0); Lymphocyte (Absolute #) 3.08 (1.0-4.6); Lymphocytes % 35.2 % (24.0-44.0); Mean Cell Volume 92.7 fl (78-100); Mean Corpuscular Hemoglobin 29.8 pg (26-32); Mean Corpuscular Hgb Concent. 32.1 g/dl (32-36); Mean Platelet Volume 11.1 fl (7.5-11.0); Monocyte (Absolute #) 0.59 (0.0-1.3); Monocytes % 6.8 % (0.0-12.0); Neutrophil % 51.7 % (36.0-66.0); Platelet Count 220 K/mm3 (150-450); Red Cell Distribution Width 13.8 % (11.5-14.0); White Blood Count 8.7 K/mm3 (4.0-10.5)
[2019-08-22] MEDS ORDERED: Sodium Chloride 0.9% 1000 ML 1,000 ML ONE (18:01)
[2019-08-22 18:09] LABS: ALBUMIN 4.6 g/dL (3.5-5.0); ANION GAP 14.9 MEQ/L (5-15); BILIRUBIN,TOTAL 0.4 mg/dL (0.2-1.3); Calcium 9.8 mg/dL (8.4-10.2); Creatinine 1 1.75 mg/dL (0.66-1.25); Potassium 4.2 mmol/L (3.5-5.1); Total Protein 8.4 g/dL (6.3-8.2)
--- NOTE | 2019-08-22 18:33 | ERPHSYRPT ---
- History of Present Illness Time Seen by Provider: 08/22/19 17:45 Historian: patient Exam Limitations: no limitations Patient Subjective Stated Complaint: Pt states that he hasn't had a bowel movement in the past 5-6 days and he usually has several in one day due to having crohns, pt states that he has attempted 8 enemas and to digitallly remove and it hasn't worked, pt thinks it is one of his new medications that is causing the constipation Triage Nursing Assessment: Pt walked into the ER, reports that his stomach is distended and hurting, bowel sounds heard in all 4, hypertensive, rates pain 8/ 10, last bowel movement 5-6 days ago, no difficulties with urination, doesn't appear to be in any distress Physician History: Patient is a 58yo M with c/o abdominal fullness and ache which he attributes to constipation x 5-6 days. Pain is described as an ache that is well localized. No radiation NO trauma. No fevers. He attempted enemas and self digital dis- impaction without success. Timing/Duration: day(s) (5-6 days), week(s) Activities at Onset: none Quality: aching, cramping, fullness Abdominal Pain Onset Location: generalized abdomen Pain Radiation: no radiation Severity of Pain-Max: moderate Severity of Pain-Current: mild Modifying Factors: Improves With: nothing Associated Symptoms: denies symptoms Previous symptoms: no prior history Allergies/Adverse Reactions: codeine Allergy (Mild, Verified 08/22/19 17:50) Itching vancomycin Allergy (Mild, Verified 08/22/19 17:50) Itching Home Medications: ARIPiprazole [Aripiprazole] 15 mg PO DAILY 06/11/19 [History] Amitriptyline HCl 200 mg PO HS 06/11/19 [History] Amlodipine Besylate 2.5 mg PO DAILY 06/11/19 [History] Desvenlafaxine Succinate [Desvenlafaxine Succinate ER] 50 mg PO DAILY 06/11/19 [ History] Diclofenac Sodium Gel [Voltaren GEL] 1 applic TOP QID PRN 06/11/19 [ History] Hydrocodone Bit/Acetaminophen [Hydrocodon-Acetaminoph 7.5-325] 1 tablet PO QID 06/11/19 [History] Loratadine [Claritin] 20 mg PO DAILY 06/11/19 [History] Ondansetron HCl [Zofran] 4 mg PO QID PRN 06/11/19 [History] Rizatriptan Benzoate [Rizatriptan] 10 mg PO DAILY PRN 06/11/19 [History] Topiramate [Trokendi Xr] 200 mg PO HS 06/11/19 [History] Triamcinolone Acetonide 0.1% [Kenalog 0.1% Ointment] 1 applic TOP DAILY [History] Colestipol HCl [Colestid] 2 gm PO BID 08/22/19 [History] Folic Acid 1 mg PO DAILY 08/22/19 [History] Metoprolol Succinate 50 mg [Toprol Xl 50 MG] 50 mg PO DAILY 08/22/19 [ History] Potassium Chloride 10 Meq Tab* [Klor Con 10 MEQ] 10 meq PO UD 08/22/19 [ History] Hx Tetanus, Diphtheria Vaccination/Date Given: Yes (unable to assess at this time) Hx Influenza Vaccination/Date Given: Yes Hx Pneumococcal Vaccination/Date Given: Yes Travel Risk - International Travel Have you traveled outside of the country in past 3 weeks: No Have you or anyone close to you been diagnosed with or: No Do your reside in a community with a known COVID-19 case?: Yes If Yes where:: [place] - Coronavirus Screening Has patient experienced Coronavirus symptoms: No - Review of Systems Constitutional: No Symptoms, No Fever, No Chills Eyes: No Symptoms Ears, Nose, & Throat: No Symptoms Respiratory: No Symptoms, No Cough, No Dyspnea Cardiac: No Symptoms, No Chest Pain, No Edema, No Syncope Abdominal/Gastrointestinal: Abdominal Pain, Constipation, No Nausea, No Vomiting , No Diarrhea, No Hematochezia, No Melena Genitourinary Symptoms: No Symptoms, No Dysuria Musculoskeletal: No Symptoms, No Back Pain, No Neck Pain Skin: No Symptoms, No Rash Neurological: No Symptoms, No Dizziness, No Focal Weakness, No Sensory Changes Psychological: No Symptoms Endocrine: No Symptoms Hematologic/Lymphatic: No Symptoms Immunological/Allergic: No Symptoms All Other Systems: Reviewed and Negative - Past Medical History Pertinent Past Medical History: Yes Neurological History: No Pertinent History ENT History: No Pertinent History Cardiac History: Hypertension Respiratory History: No Pertinent History Endocrine Medical History: No Pertinent History Musculoskeletal History: No Pertinent History GI Medical History: Crohns Disease, Pancreatitis, Other History: No Pertinent History Psycho-Social History: Anxiety Male Reproductive Disorders: No Pertinent History 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 unable to update at this time -07/26/19414 - Past Surgical History Past Surgical History: Yes Neuro Surgical History: No Pertinent History Cardiac: No Pertinent History Respiratory: No Pertinent History Gastrointestinal: Cholecystectomy Other Surgical History: all teeth removed -unable to update at this time 414 - Social History Smoking Status: Current every day smoker How long have you smoked: 35 years Exposure to second hand smoke: Yes Drug Use: none Patient Lives Alone: No - Nursing Vital Signs Nursing Vital Signs: Initial Vital Signs Temperature 97.5 F 08/22/19 17:34 Pulse Rate 87 08/22/19 17:34 Blood Pressure 173/86 08/22/19 17:34 O2 Sat by Pulse Oximetry 99 08/22/19 17:34 Pain Scale Pain Intensity 6 - Physical Exam General Appearance: no apparent distress, alert Eye Exam: PERRL/EOMI, eyes nml inspection Ears, Nose, Throat Exam: normal ENT inspection, pharynx normal, moist mucous membranes Neck Exam: normal inspection, non-tender, supple, full range of motion Respiratory Exam: normal breath sounds, lungs clear, No respiratory distress Cardiovascular Exam: regular rate/rhythm, normal heart sounds Gastrointestinal/Abdomen Exam: soft, tenderness, distention, No mass, No guarding, No pulsatile mass, No rebound, No organomegaly, No splenomegaly Back Exam: normal inspection, normal range of motion, No CVA tenderness, No vertebral tenderness Extremity Exam: normal inspection, normal range of motion, pelvis stable Neurologic Exam: alert, oriented x 3, cooperative, normal mood/affect, nml cerebellar function, sensation nml, No motor deficits Skin Exam: normal color, warm, dry SpO2 Interpretation: normal SpO2: 98 O2 Delivery: Room Air - Course Nursing assessment & vital signs reviewed: Yes EKG Interpreted by Me: RATE, Sinus Rhythm, NORMAL AXIS, NORMAL INTERVALS - CT Exams Abdomen/Pelvis CT Interpretation: Tele-radiologist Report (Constipation) Ordered Tests: Active Orders 24 hr Category Date Time Status EKG-ER Only STAT Care 08/22/19 17:39 Active Enema STAT Care 08/22/19 19:25 Active IV Insertion STAT Care 08/22/19 17:39 Active ABDOMEN AND PELVIS W/0 CONTRAS [CT] Stat Exams 08/22/19 17:39 Taken CBC W DIFF Stat Lab 08/22/19 17:50 Completed CMP Stat Lab 08/22/19 17:50 Completed LIPASE Stat Lab 08/22/19 17:50 Completed TROPONIN Q3H Lab 08/22/19 17:50 Completed TROPONIN Q3H Lab 08/22/19 20:45 Ordered TROPONIN Q3H Lab 08/22/19 23:45 Ordered TROPONIN Q3H Lab 08/23/19 02:45 Ordered TROPONIN Q3H Lab 08/23/19 05:45 Ordered UA W/RFX UR CULTURE Stat Lab 08/22/19 17:39 Uncollected Medication Summary Discontinued Medications Generic Name Dose Route Start Last Admin Trade Name Freq PRN Reason Stop Dose Admin Sodium Chloride 1,000 mls @ 999 mls/hr 08/22/19 17:39 08/22/19 19:06 Sodium Chloride 0.9% 1000 Ml IV 08/22/19 18:39 Infused .Q1H1M STA Infusion Sodium Chloride Confirm 08/22/19 18:01 Sodium Chloride 0.9% 1000 Ml Administered 08/22/19 18:02 Dose 1,000 mls @ ud .ROUTE .STK-MED ONE Lab/Rad Data: Laboratory Result Diagrams 08/22/19 17:50 08/22/19 17:50 Laboratory Results 08/22/19 08/22/19 08/22/19 Range/Units 17:50 17:50 17:50 WBC 8.7 (4.0-10.5) K/mm3 RBC 4.40 (4.1-5.6) M/mm3 Hgb 13.1 (12.5-18.0) gm/dl Hct 40.8 L (42-50) % MCV 92.7 (78-100) fl MCH 29.8 (26-32) pg MCHC 32.1 (32-36) g/dl RDW 13.8 (11.5-14.0) % Plt Count 220 (150-450) K/mm3 MPV 11.1 H (7.5-11.0) fl Gran % 51.7 (36.0-66.0) % Eos # (Auto) 0.51 H (0-0.5) Absolute Lymphs (auto) 3.08 (1.0-4.6) Absolute Monos (auto) 0.59 (0.0-1.3) Lymphocytes % 35.2 (24.0-44.0) % Monocytes % 6.8 (0.0-12.0) % Eosinophils % 5.8 H (0.00-5.0) % Basophils % 0.5 (0.0-0.4) % Absolute Granulocytes 4.52 (1.4-6.9) Basophils # 0.04 (0-0.4) Sodium 141 (137-145) mmol/L Potassium 4.2 (3.5-5.1) mmol/L Chloride 105 (98-107) mmol/L Carbon Dioxide 25 (22-30) mmol/L Anion Gap 14.9 (5-15) MEQ/L BUN 19 (9-20) mg/dL Creatinine 1.75 H (0.66-1.25) mg/dL Estimated GFR 43.1 ML/MIN Glucose 107 H (74-106) mg/dL Calcium 9.8 (8.4-10.2) mg/dL Total Bilirubin 0.40 (0.2-1.3) mg/dL AST 22 (17-59) U/L ALT 25 (0-50) U/L Alkaline Phosphatase 168 H (38-126) U/L Troponin I < 0.012 (0.000-0.034) ng/mL Serum Total Protein 8.4 H (6.3-8.2) g/dL Albumin 4.6 (3.5-5.0) g/dL Lipase 125 (23-300) U/L - Progress Progress: improved Counseled pt/family regarding: lab results, diagnosis, need for follow-up, rad results - Departure Departure Disposition: Home Clinical Impression: Constipation Condition: Stable Critical Care Time: No Referrals: JOCELYNE BURRIS MD [Primary Care Provider] - Additional Instructions: Discharge/Care Plan ANGELITO ESPINOZA was seen on 08/22/19 in the Emergency Room. The patient was counseled regarding Diagnosis,Lab results, Imaging studies, need for follow up and when to return to the Emergency Room. Prescriptions given: Discharge Note I have spoken with the patient and/or caregivers. I have explained the patient' s condition, diagnosis and treatment plan based on the information available to me at this time. I have answered the patient's and/or caregiver's questions and addressed any concerns. The patient and/or caregivers have as good understanding of the patient's diagnosis, condition and treatment plan as can be expected at this point. The vital signs have been stable. The patient's condition is stable and appropriate for discharge from the emergency department. The patient will pursue further outpatient evaluation with the primary care physician or other designated or consulting physician as outlined in the discharge instructions. The patient and/or caregivers are agreeable to this plan of care and follow-up instructions have been explained in detail. The patient and/or caregivers have received these instruction. The patient/and or caregivers are aware that any significant change in condition or worsening of symptoms should prompt an immediate return to this or the closest emergency department or call 911.
[2019-08-22 19:55] VITALS: BP 134/87; PULSE 76; O2SAT 99
--- NOTE | 2019-08-23 08:41 | XRAY ---
Indication: Left abdomen pain. Constipation. Multiple contiguous axial images obtained through the abdomen and pelvis without contrast as ordered. Comparison: March 03, 2019. Lung bases again demonstrates bibasilar dependent atelectasis and left lower lobe peripheral calcified granuloma. Heart is not enlarged. Noncontrasted stomach and bowel loops appear nonobstructed. Normal appendix. There remains moderate diffuse scattered colonic fecal debris throughout including rectum. Stable cholecystectomy clips. No free fluid/air. Remaining liver, pancreas, spleen, adrenal glands, kidneys, ureters, and bladder appear unremarkable for noncontrast exam. Stable mild aortoiliac calcifications without AAA. Osseous structures intact again with mild degenerative changes throughout the thoracolumbar spine. Stable small fatty right inguinal hernia. Impression: 1. Again diffuse fecal stasis and small fatty right inguinal hernia. 2. Remaining CT abdomen/pelvis without contrast exam is negative
== END 2019-08-22 20:08 | disposition home or self-care (01) ==
LOC: ED 17:24
DX: K59.00 Constipation, unspecified (principal); Z72.0 Tobacco use
CPT/HCPCS: 36000; 36415; 74176; 80053; 83690; 84484; 85025; 93005; 96360; 99284

== ENCOUNTER 2019-11-30 11:48 | Day surgery (SDC) | payer MEDICARE ==
[2019-11-30] MEDS ORDERED: Xylocaine 1% Vial 30 ML PF IJ ONE (11:49)
[2019-11-30] MEDS ORDERED: Depo-Medrol 40 MG/ML IM ONE (11:49)
[2019-11-30] MEDS ORDERED: BUPIVACAINE 0.5% VIAL IJ ONE (11:49)
--- NOTE | 2019-11-30 16:38 | XRAY ---
Indication: Bilateral SI joint injection. Intraoperative fluoroscopy was provided for 16 seconds. 4 digital spot images submitted for interpretation demonstrates posterior needle tip projecting over the inferior left and right SI joint. Correlate with intraoperative findings/report.
--- NOTE | 2019-11-30 16:46 | XRAY ---
Indication: Left hip injection. Intraoperative fluoroscopy was provided for 26 seconds. Single digital spot image of the left hip obtained prone demonstrates needle tip projecting just lateral to the left femur neck. Small amount of contrast injected for needle tip placement. Correlate with intraoperative findings/report.
--- NOTE | 2019-11-30 17:11 | XRAY ---
26 seconds for fluoroscopy was used in surgery for a left intra-articular hip injection.
--- NOTE | 2019-11-30 17:21 | XRAY ---
16 seconds of fluoroscopy was used in surgery for bilateral SI joint injections.
== END 2019-11-30 13:25 | disposition home or self-care (01) ==
LOC: SDC-PAIN 11:48
PROVIDERS: ATTEND Psychiatry & Neurology Pain Medicine
DX: M46.1 Sacroiliitis, not elsewhere classified (principal); K50.90 Crohn's disease, unspecified, without complications; K85.90 Acute pancreatitis without necrosis or infection, unspecified; B19.10 Unspecified viral hepatitis B without hepatic coma; Z79.899 Other long term (current) drug therapy
CPT/HCPCS: 20610; 64451; 72202; 73501; 77002; J1030; J2001; Q9966

== ENCOUNTER 2020-04-11 13:51 | Day surgery (SDC) | payer MEDICARE ==
[2020-04-11] MEDS ORDERED: Depo-Medrol 40 MG/ML IM ONE (13:52)
[2020-04-11] MEDS ORDERED: BUPIVACAINE 0.5% VIAL IJ ONE (13:52)
[2020-04-11] MEDS ORDERED: Ketamine HCl 50 MG/ML ONE ×2 (14:58→15:14)
[2020-04-11] MEDS ORDERED: DIPRIVAN 200 MG/20 ML IV ONE ×2 (14:58→15:14)
[2020-04-11] MEDS ORDERED: Lactated Ringers 1,000 ML IV ONE (16:06)
--- NOTE | 2020-04-11 16:58 | XRAY ---
12 seconds fluoroscopy time in surgery for intra-articular injection of the left hip.
--- NOTE | 2020-04-11 16:58 | XRAY ---
Indication: Bilateral SI joint injection. Intraoperative fluoroscopy was provided for 15 seconds. 4 digital spot images submitted for interpretation demonstrates posterior needle tip projecting over the inferior left and right SI joints. Correlate with intraoperative findings/report.
--- NOTE | 2020-04-11 17:00 | XRAY ---
15 seconds fluoroscopy time in surgery for bilateral SI joint injections.
--- NOTE | 2020-04-11 17:08 | XRAY ---
Indication: Left hip injection. Intraoperative fluoroscopy was provided for 12 seconds. Single digital spot image obtained prone submitted for interpretation demonstrates needle tip projecting just lateral to the left femur neck. Small amount of contrast injected for needle tip placement. Correlate with intraoperative findings/report.
== END 2020-04-11 15:42 | disposition home or self-care (01) ==
LOC: SDC-PAIN 13:51
PROVIDERS: ATTEND Psychiatry & Neurology Pain Medicine
DX: M46.1 Sacroiliitis, not elsewhere classified (principal); M16.12 Unilateral primary osteoarthritis, left hip; Z79.899 Other long term (current) drug therapy; I10 Essential (primary) hypertension; E78.00 Pure hypercholesterolemia, unspecified
CPT/HCPCS: 20610; 27096; 72202; 73501; 77002; G0260; J1030; J2704; Q9966